=== PATIENT | male | born 1960 | race Caucasian/White ===

== ENCOUNTER 2020-11-03 22:16 | Emergency (ER) | payer BC ==
[2020-11-04] MEDS ORDERED: Lidocaine Viscous Sol 2% 15 ml UD Cup ONE (01:19)
[2020-11-04] MEDS ORDERED: Mag-Al 1200 mg/1200 mg/30 ML UDCUP ONE (01:19)
== END 2020-11-04 02:04 | disposition home or self-care (01) ==
LOC: ERS 22:16
DX: T65.91XA Toxic effect of unspecified substance, accidental (unintentional), initial encounter (principal)
CPT/HCPCS: 99283

== ENCOUNTER 2022-10-31 12:17 | Outpatient (CLI) | payer BC ==
[~2022-10-31 12:17] MED LIST: Magnevist 469MG/ML 20 ML VIAL ONE
== END 2022-10-31 12:18 | disposition home or self-care (01) ==
LOC: BICMRI 12:17
PROVIDERS: ATTEND Family Medicine
DX: M54.16 Radiculopathy, lumbar region (principal); M48.062 Spinal stenosis, lumbar region with neurogenic claudication; R20.0 Anesthesia of skin; M79.604 Pain in right leg
CPT/HCPCS: 72158; 82565; A9579

== ENCOUNTER 2022-11-22 14:19 | Outpatient (CLI) | payer BC | END 2022-11-22 14:20 | disposition home or self-care (01) | LOC: RAD 14:19 | PROVIDERS: ATTEND Nurse Practitioner Family | DX: M47.26 Other spondylosis with radiculopathy, lumbar region (principal); M51.16 Intervertebral disc disorders with radiculopathy, lumbar region | CPT/HCPCS: 72110 ==

== ENCOUNTER 2023-09-19 07:50 | Outpatient (CLI) | payer BC | END 2023-09-19 07:51 | disposition home or self-care (01) | LOC: BICCT 07:50 | PROVIDERS: ATTEND Urology | DX: N28.1 Cyst of kidney, acquired (principal); N20.0 Calculus of kidney; K76.89 Other specified diseases of liver; N28.9 Disorder of kidney and ureter, unspecified | CPT/HCPCS: 74170; Q9967 ==